=== PATIENT | female | born 1975 | race Caucasian/White ===

== ENCOUNTER 2016-05-11 15:55 | Emergency (ER) | payer OTHER ==
--- NOTE | 2016-05-11 17:19 | ED NURSING NOTES ---
Clinical Report - Nurses [facility] [address] [place] [address] 05/11/2016 15:54 Patient: KIN PHAN TRIAGE Acuity: LEVEL 3. Chief Complaint: MIGRAINE HEADACHE. Alert. No acute distress. SEPSIS SCREEN: Sepsis Screen. Negative (no infection suspected/documented). NALINI COMA SCORE: [place] Coma Scale: 15- eyes open spontaneously (4); best verbal response- oriented x 4 (5); best motor response- obeys commands (6). --16:05 Cherelle Ray R.N. 16:00 05/11/16. BP: 128/68. HR: 108. RR: 18. O2 saturation: 99% on room air. Temp: 98.5 F (oral). Pain level now: 01/13. --16:05 Cherelle aRy R.N. Weight: 117.9 kg stated. Height/Length: 64 inches Per Patient. BMI: 44.6. --16:02 Cherelle Ray R.N. Medications LamoTRIgine Oral. --16:02 Cherelle Ray R.N. Medication/allergy information source: the patient. --16:05 Cherelle Ray R.N. Allergies Erythromycin. Imitrex.(Anaphylaxis) --16:02 Cherelle Ray R.N. History Arrived by private vehicle. Historian: patient. Accompanied by spouse. Primary physician (Adan). This started 1 months ago. ( Pt reports she has had this headache for 1 month. Today it is worse.). PAST MEDICAL HX: Uses depo injections. SOCIAL HX: Never smoker. No alcohol use or drug use. FALL RISK ASSESSMENT: Fall risk assessment completed. No fall risk identified. NUTRITIONAL RISK ASSESSMENT: The nutritional risk assessment revealed no deficiencies. FUNCTIONAL ASSESSMENT: Functional assessment: no impairments noted. LEARNING NEEDS ASSESSMENT: The learning needs assessment revealed no barriers. SKIN INTEGRITY ASSESSMENT: Skin integrity risk assessment completed. No skin integrity risk identified. --16:05 Winterer, Cherelle, R.N. PROBLEMS: Headache. Otitis Externa. Diarrhea. Chronic Headache. Diabetes Mellitus. Migraine Headache. Personality disorder, manic depressant, PTSD. --16:02 Cherelle Ray R.N. ADDITIONAL SURGERIES: Carpal Tunnel Surgery. Cyst on rt hand . Dilatation & Curettage. Tonsillectomy. --16:02 Cherelle Ray R.N. Assessment GENERAL / NEURO / PSYCH: Alert. Oriented X 4. Appears in no acute distress. Patient appears calm and cooperative. RESPIRATORY: Respirations not labored. CVS: Capillary refill less than 2 seconds. GI / : Abdomen soft and nontender. SKIN: Mucous membranes are pink. Skin is warm and dry. --16:05 Cherelle Ray R.N. Interventions ID band on patient. To treatment room. --16:05 Cherelle Ray R.N. NURSING PROGRESS NOTES Reassurance given. Lights dimmed. Two patient identifiers checked. Call light placed in reach. Side rails up x 1. Bed placed in lowest position. Brakes of bed on. Patient ready for evaluation- chart flagged and TOUCH UP PAINTER HAND notified. --16:05 Cherelle Ray R.N. 16:35 05/11/2016 Toradol (Ketorolac Tromethamine) IM 60 mg given. Given in the left gluteus chay. Allergies verified and confirmed 5 rights. --16:35 Cherelle Ray R.N. 16:35 05/11/2016 Benadryl (DiphenhydrAMINE HCl) IM 50 mg given. Given in the right deltoid. Allergies verified, confirmed 5 rights and sedative warning given to the patient. --16:35 Cherelle Ray R.N. 16:35 05/11/2016 Reglan (Metoclopramide HCl) IM 10 mg given. Given in the left gluteus chay. Allergies verified and confirmed 5 rights. --16:35 Cherelle Ray R.N. 17:05 05/11/16. The patient is calm and resting quietly and has had no adverse reaction. Overall patient status is the same- she states feels the same. --17: Cherelle Ray R.N. DISPOSITION / DISCHARGE Departure time: 17:35 May 11 2016. Condition at departure: improved and stable. No learning barriers present. Discharge instructions provided and reviewed with the patient. Reviewed medication(s) side effects, precautions and dosing information. Prescription(s) given to the patient. Patient verbalized understanding. Written instructions provided in [place]. The patient was discharged by the nurse practitioner. She was discharged home and accompanied by spouse. She left the Emergency Department ambulatory and via private vehicle. Spouse driving. --18:49 Cherelle Ray R.N. 18:47 05/11/16. BP: 117/57. HR: 82. RR: 16. O2 saturation: 100%. Temp: 98.4 F (oral). Pain level now: 09/13. --18:49 Cherelle Ray R.N. Locked/Released at 05/11/2016 18:49 by Cherelle Ray R.N.
--- NOTE | 2016-05-11 17:19 | ED NURSING NOTES ---
Clinical Report - Nurses [facility] [address] [place] [address] 05/11/2016 15:54 Patient: KIN PHAN TRIAGE Acuity: LEVEL 3. Chief Complaint: MIGRAINE HEADACHE. Alert. No acute distress. SEPSIS SCREEN: Sepsis Screen. Negative (no infection suspected/documented). NALINI COMA SCORE: [place] Coma Scale: 15- eyes open spontaneously (4); best verbal response- oriented x 4 (5); best motor response- obeys commands (6). --16:05 Cherelle Ray R.N. 16:00 05/11/16. BP: 128/68. HR: 108. RR: 18. O2 saturation: 99% on room air. Temp: 98.5 F (oral). Pain level now: 01/13. --16:05 Cherelle Ray R.N. Weight: 117.9 kg stated. Height/Length: 64 inches Per Patient. BMI: 44.6. --16:02 Cherelle Ray R.N. Medications LamoTRIgine Oral. --16:02 Cherelle Ray R.N. Medication/allergy information source: the patient. --16:05 Cherelle Ray R.N. Allergies Erythromycin. Imitrex.(Anaphylaxis) --16:02 Cherelle Ray R.N. History Arrived by private vehicle. Historian: patient. Accompanied by spouse. Primary physician (Adan). This started 1 months ago. ( Pt reports she has had this headache for 1 month. Today it is worse.). PAST MEDICAL HX: Uses depo injections. SOCIAL HX: Never smoker. No alcohol use or drug use. FALL RISK ASSESSMENT: Fall risk assessment completed. No fall risk identified. NUTRITIONAL RISK ASSESSMENT: The nutritional risk assessment revealed no deficiencies. FUNCTIONAL ASSESSMENT: Functional assessment: no impairments noted. LEARNING NEEDS ASSESSMENT: The learning needs assessment revealed no barriers. SKIN INTEGRITY ASSESSMENT: Skin integrity risk assessment completed. No skin integrity risk identified. --16:05 Winterer, Cherelle, R.N. PROBLEMS: Headache. Otitis Externa. Diarrhea. Chronic Headache. Diabetes Mellitus. Migraine Headache. Personality disorder, manic depressant, PTSD. --16:02 Cherelle Ray R.N. ADDITIONAL SURGERIES: Carpal Tunnel Surgery. Cyst on rt hand . Dilatation & Curettage. Tonsillectomy. --16:02 Cherelle Ray R.N. Assessment GENERAL / NEURO / PSYCH: Alert. Oriented X 4. Appears in no acute distress. Patient appears calm and cooperative. RESPIRATORY: Respirations not labored. CVS: Capillary refill less than 2 seconds. GI / : Abdomen soft and nontender. SKIN: Mucous membranes are pink. Skin is warm and dry. --16:05 Cherelle Ray R.N. Interventions ID band on patient. To treatment room. --16:05 Cherelle Ray R.N. NURSING PROGRESS NOTES Reassurance given. Lights dimmed. Two patient identifiers checked. Call light placed in reach. Side rails up x 1. Bed placed in lowest position. Brakes of bed on. Patient ready for evaluation- chart flagged and NUCLEAR REACTOR ENGINEER notified. --16:05 Cherelle Ray R.N. 16:35 05/11/2016 Toradol (Ketorolac Tromethamine) IM 60 mg given. Given in the left gluteus chay. Allergies verified and confirmed 5 rights. --16:35 Cherelle Ray R.N. 16:35 05/11/2016 Benadryl (DiphenhydrAMINE HCl) IM 50 mg given. Given in the right deltoid. Allergies verified, confirmed 5 rights and sedative warning given to the patient. --16:35 Cherelle Ray R.N. 16:35 05/11/2016 Reglan (Metoclopramide HCl) IM 10 mg given. Given in the left gluteus chay. Allergies verified and confirmed 5 rights. --16:35 Cherelle Ray R.N. 17:05 05/11/16. The patient is calm and resting quietly and has had no adverse reaction. Overall patient status is the same- she states feels the same. --17: Cherelle Ray R.N. DISPOSITION / DISCHARGE Departure time: 17:35 May 11 2016. Condition at departure: improved and stable. No learning barriers present. Discharge instructions provided and reviewed with the patient. Reviewed medication(s) side effects, precautions and dosing information. Prescription(s) given to the patient. Patient verbalized understanding. Written instructions provided in [place]er. The patient was discharged by the nurse practitioner. She was discharged home and accompanied by spouse. She left the Emergency Department ambulatory and via private vehicle. Spouse driving. --18:49 Cherelle Ray R.N. 18:47 05/11/16. BP: 117/57. HR: 82. RR: 16. O2 saturation: 100%. Temp: 98.4 F (oral). Pain level now: 09/13. --18:49 Cherelle Ray R.N. Locked/Released at 05/11/2016 18:49 by Cherelle Ray R.N.
--- NOTE | 2016-05-11 17:19 | ED CLINICAL REPORT ---
Clinical Report - Physicians/Mid Levels [facility] [address] [place] [address] 05/11/2016 15:54 Patient: KIN PHAN Time Seen: 15:59; initial patient contact, initial documentation, patient care assumed. Arrived- By private vehicle. Historian- patient and spouse. HISTORY OF PRESENT ILLNESS Is still present. Chief Complaint: HEADACHE and MIGRAINE HEADACHE. This started about 1 months ago. It is described as similar to previous headaches, "pain", throbbing and diffuse. Located in the right hemicranial, right parietal, right temporal, frontal and left hemicranial region. Located in the left parietal and left temporal region and described as a global headache. No neck pain. Not located in the facial region. At its maximum, severity described as severe. When seen in the E.D., severity described as severe. Modifying factors: worsened by bright light and noise; relieved by nothing. The patient has had photophobia, nausea and vomiting. The vomiting has occurred only once. No preceding symptoms, numbness or weakness. No recent travel. Similar symptoms previously: Chronically. Recent medical care: The patient was seen recently in the office. ( went to neuro about a month ago, had mri and other tests done, all normal, saw dr about a week ago, steroids tried, still has lee). REVIEW OF SYSTEMS No fever, sinus pressure, ear pain, sore throat or head injury. No chest pain, difficulty breathing, cough or abdominal pain. All systems otherwise negative, except as recorded above. PAST HISTORY See nurses notes. PROBLEMS: Headache. Otitis Externa. Diarrhea. Chronic Headache. Diabetes Mellitus. Migraine Headache. Personality disorder, manic depressant, PTSD. --16:02 Cherelle Ray RTeodora. ADDITIONAL SURGERIES: Carpal Tunnel Surgery. Cyst on rt hand . Dilatation & Curettage. Tonsillectomy. --16:02 Cherelle Ray R.N. SOCIAL HISTORY Never smoker. No alcohol use or drug use. No recent travel. Is a local resident. FAMILY HISTORY Negative. ADDITIONAL NOTES The nursing notes have been reviewed with agreement regarding the chief complaint, HPI, ROS, PMH and patient medications and allergies. PHYSICAL EXAM Vital Signs: 05/11/2016 16:00 BP: 128/68. HR: 108. RR: 18. O2 saturation: 99%. Temp: 98.5 F. Pain level now: 01/13. Have been reviewed as normal and appear to be correct. Appearance: Alert. No acute distress. Eyes: Pupils equal, round and reactive to light. Eyes normal inspection. ENT: Ears normal. Nose normal. Pharynx normal. Neck: Normal inspection. Neck supple. CVS: Normal heart rate and rhythm. Heart sounds normal. Pulses normal. Respiratory: No respiratory distress. Breath sounds normal. Abdomen: Mildly obese. Back: Normal inspection. Skin: Skin warm and dry. Normal skin color. No rash. Normal skin turgor. Extremities: Extremities exhibit normal ROM. No lower extremity edema. Neuro: Oriented X 3. Alert. Mood/affect normal. Speech normal. Cranial nerves normal (as tested). No cerebellar findings. No motor deficit. No sensory deficit. PROGRESS AND PROCEDURES Course of Care: 16:08 05/11/16. pt has brief viry for ativan and some er visits, nothing alarming, see report for full details DANCE ARTIST Kushal assisting with pt eval and tx with my supervision. Patient counseled in person regarding the patient's stable condition and diagnosis. 17:18. Differential Diagnosis: I considered migraine, cluster headache, subarachnoid hemorrhage, intracranial bleed, vascular malformation, cerebral aneurysm, vascular dissection, vasculitis, temporal arteritis, brain abscess, subdural empyema, sinusitis, influenza, viral syndrome, carbon monoxide exposure, analgesic abuse, hypoglycemia and trigeminal neuralgia as a possible cause of headache in this patient. This is a partial list of diagnoses considered. Above considerations are based on history and physical exam. Differential diagnosis was discussed with patient. Disposition: Discharged home in good and improved condition (17:19). Condition: good and stable. CLINICAL IMPRESSION Episodic, poorly controlled migraine and periodic headache syndrome. INSTRUCTIONS Warnings: GENERAL WARNINGS: Return or contact your physician immediately if your condition worsens or changes unexpectedly, if not improving as expected, or if other problems arise. SPECIFICALLY, return if you develop fever, vomiting, numbness, weakness, difficulty thinking, visual disturbances, fainting or extreme fatigue. Prescription Medications: Zofran 4 mg: Take 1 orally every six hours as needed for nausea/vomiting. Dispense ten (10). No refills. Substitution is permissible. Fioricet: Take 1-2 orally every 4 hours as needed for headache. Dispense twenty (20). No refills. Substitution is permissible. Follow-up: Follow up with your doctor in about two days even if well. Call for an appointment. Summary of care provided to patient. Understanding of the discharge instructions verbalized by patient. (Electronically signed by Tram Guy A.R.N.PJuan 05/11/2016 17:57)
--- NOTE | 2016-05-11 17:19 | ED ORDER SUMMARY ---
..... Patient: KIN PHAN OrderSheet [facility] VisitID: [id number] [address] [place] [address] 40y, F Registration Date/Time: 05/11/2016 ORDER SHEET Weight: 117.9 kg (stated) Allergies: Erythromycin, Imitrex GENERAL ORDERS: MEDICATION ORDERS: Toradol IM 60 mg (NOW) (16:23 05/11/2016 HBivens A.R.N.P.) (Ack 16:24 MWinterer R.N.) (16:35 MWinterer R.N.) Benadryl IM 50 mg (NOW) (16:23 05/11/2016 HBivens A.R.N.P.) (Ack 16:24 MWinterer R.N.) (16:35 MWinterer R.N.) - (Reglan 10mg im stat) (16:23 05/11/2016 HBivens A.R.N.P.) (Ack 16:24 MWinterer R.N.) (16:35 MWinterer R.N.) IV FLUIDS: ORDER SHEET NOTES: [Electronically signed by Tram Guy A.R.N.PJuan (17:57 05/11/2016)] [Electronically signed by Cherelle Ray R.N. (18:49 05/11/2016)] [Electronically locked/signed by Cherelle Ray R.N. (18:49 05/11/2016)]
--- NOTE | 2016-05-11 17:19 | ED ORDER SUMMARY ---
..... Patient: KIN PHAN OrderSheet [facility] VisitID: [id number] [address] [place] [address] 40y, F Registration Date/Time: 05/11/2016 ORDER SHEET Weight: 117.9 kg (stated) Allergies: Erythromycin, Imitrex GENERAL ORDERS: MEDICATION ORDERS: Toradol IM 60 mg (NOW) (16:23 05/11/2016 HBivens A.R.N.P.) (Ack 16:24 MWinterer R.N.) (16:35 MWinterer R.N.) Benadryl IM 50 mg (NOW) (16:23 05/11/2016 HBivens A.R.N.P.) (Ack 16:24 MWinterer R.N.) (16:35 MWinterer R.N.) - (Reglan 10mg im stat) (16:23 05/11/2016 HBivens A.R.N.P.) (Ack 16:24 MWinterer R.N.) (16:35 MWinterer R.N.) IV FLUIDS: ORDER SHEET NOTES: [Electronically signed by Tram Guy A.R.N.PJuan (17:57 05/11/2016)] [Electronically signed by Cherelle Ray R.N. (18:49 05/11/2016)] [Electronically locked/signed by Cherelle Ray R.N. (18:49 05/11/2016)]
--- NOTE | 2016-05-11 18:49 | ED DISCHARGE INSTRUCTIONS ---
Patient: KIN PHAN General Instructions 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 INSTRUCTIONS Warnings: GENERAL WARNINGS: Return or contact your physician immediately if your condition worsens or changes unexpectedly, if not improving as expected, or if other problems arise. SPECIFICALLY, return if you develop fever, vomiting, numbness, weakness, difficulty thinking, visual disturbances, fainting or extreme fatigue. Prescription Medications: Zofran 4 mg: Take 1 orally every six hours as needed for nausea/vomiting. Dispense ten (10). No refills. Substitution is permissible. Fioricet: Take 1-2 orally every 4 hours as needed for headache. Dispense twenty (20). No refills. Substitution is permissible. Follow-up: Follow up with your doctor in about two days even if well. Call for an appointment. Summary of care provided to patient. Understanding of the discharge instructions verbalized by patient. ADDITIONAL INFORMATION Headache Cluster A cluster headache is different from migraine or tension headaches. A cluster headache starts suddenly without any warning sign. The pain can become severe within minutes. The headache is often brief, usually lasting only 15 minutes; but it can continue for several hours. The pain is centered around one eye. There may be tears coming from that eye. That eyelid may become droopy with redness and swelling around the eye. A stuffy or runny nose on the affected side is also common. There may be several headaches in one 24-hour period. These may return at the same time of day during the cluster period. A cluster headache ends as suddenly as it began. It often leaves you feeling exhausted for some time afterwards. Cluster headaches often occur in the nighttime, during certain times of the year that is unique to you. A cluster period ranges from a few weeks up to a few months. Then, they may not recur again for months or years. Possible triggers include alcohol and cigarette smoking. Even one drink can trigger a headache during the cluster period. Other potential triggers include interrupted sleep patterns. Certain medicines such as nitroglycerin can also cause a cluster headache. If your headaches are brief (15 minutes or less), chpt-xtd-shlxcwp medicines wont help,since it takes 20-30 minutes for these medicines to start working. Prescription medicines by injection or nasal spray can stop a headache (called abortive treatment). Preventive treatments (such as steroids, and anti-seizure medicines) can help reduce the number of headaches during a cluster period. Use of oxygen or a nerve stimulator may shorten each attack and reduce the severity. In some people with frequent and severe symptoms, surgery may be used to disrupt part of the local nerve conducting the pain signals.These preventive treatments are usually provided by specialists such as a neurologist or neurosurgeon. Home Care: If you were given pain medicine for this headache, do not drive yourself home. Arrange for a ride, instead. When you get home, try to sleep. You should feel much better when you wake up. If your doctor has prescribed preventive medicines, take them as directed. If abortive medicines were prescribed be sure to carry these with you to take at first sign of the headache. Stick to a regular sleep schedule. Avoid afternoon naps during a cluster period. If you have sleep apnea, talk to your doctor about treatment for this condition since this greatly interferes with sleep patterns. Limit exposure to fumes from gasoline, oil-based paints and the like. Avoid drinking alcohol and smoking during a cluster period. Be cautious when traveling to high altitudes. The reduced oxygen may trigger a headache. Use sunglasses to avoid glare and bright lights. Keep a headache journal. Record the date and time of each headache. Describe the quality of the pain (severity, location, how long it lasts), your response to any medicines to control the pain, possible triggers (something you ate or did just before the attack). Share this information with your doctor to help him design the best treatment plan for you. Talking to a counselor, therapist or support group may help you cope with the effects of cluster headache on your lifestyle. Follow Up with your doctor or as advised by our staff. [NOTE: If you had a CT scan or MRI, this will be reviewed by a specialist. You will be notified of any new findings that may affect your care.] Get Prompt Medical Attention if any of the following occur: Sudden, severe headache, worse than any you have had before Headache with a fainting spell Unexplained fever greater than 100.0 F (37.8 C) Stiff neck or rash Weakness of an arm or leg or one side of the face Difficulty with speech or vision Migraine Headache Migraine headaches are related to changes in blood flow to the brain. This causes throbbing or constant pain on one or both sides of the head. The pain may last from a few hours to several days. There is usually nausea, vomiting, sensitivity to light and sound, and blurred vision. A migraine attack may be triggered by emotional stress, hormone changes during the menstrual cycle, oral contraceptives, alcohol use, certain foods containing tyramine, eye strain, weather changes, missing meals, or too little or too much sleep. Home Care For This Headache: 1) If you were given pain medicine for this headache, do not drive yourself home . Arrange for a ride, instead. When you get home, try to sleep. You should feel much better when you wake up. 2) Migraine headaches may improve with an ice pack on the forehead or at the base of the skull. Heat to the back of your neck may relieve any neck spasm. 3) Drink only clear liquids or eat a very light diet to avoid nausea/vomiting until symptoms improve. Preventing Future Headaches: 1) Pay attention to those factors that seem to trigger your headache. Try to avoid them when you can. If you have frequent headaches, it is useful to keep a diary of what you were doing, feeling or eating in the hours before each attack. Show this to your doctor to help find the cause of your headaches. a) If you feel that stress is a factor in your headaches, look at the sources of stress in your life. Find ways to release the build-up of those stresses by using regular exercise, relaxation methods (yoga, meditation), bio-feedback or simply taking time-out for yourself. For more information about this, consult your doctor or go to a local bookstore and review books and tapes on this subject. b) Tyramine is a substance present in the following foods : chocolate, yogurt, all cheeses except cottage cheese and cream cheese. smoked or pickled fish and meat (including eledr, caviar, bologna, pepperoni, salami), liver, avocados, bananas, figs, raisins, and red wine. Be aware that these foods may trigger a migraine in some persons. Try taking these foods out of your diet for 1-2 months to see if this reduces headache frequency. Treating Future Attacks: 1) At the first sign of a headache, take time out if possible. Find a quiet, dark, comfortable place to sit or lie down. Let yourself relax or sleep. 2) An ice pack on the forehead or area of greatest pain may help. If you are having muscle spasm and tightness of the neck, a heating pad and massage to this area may be helpful. 3) If you have been prescribed a medicine to stop a migraine headache, use this at the very first warning sign of the headache (aura or initial pain) for best results. Follow Up with your doctor if the headache is not better within the next 24 hours. If you have frequent headaches you should discuss a treatment plan with your primary care doctor. Ask if you can have medicine to take at home the next time you get a bad headache. Poorly controlled chronic headaches may require a referral to a neurologist (headache specialist). Get Prompt Medical Attention if any of the following occur: Your head pain gets worse, or does not improve within 24 hours Repeated vomiting (cant keep liquids down) Sinus or ear or throat pain (not already reported) Fever of 100.4 F (38 C) or higher, or as directed by your healthcare provider Stiff neck Extreme drowsiness, confusion or fainting Dizziness, vertigo (dizziness with spinning sensation) Weakness of an arm or leg or one side of the face Difficulty with speech or vision Headache [Unspecified] The cause of your headache today is not clear, but it does not appear to be the sign of any serious illness. Under stress, some people tense the muscles of their shoulder, neck and scalp without knowing it. If this condition lasts long enough, a TENSION HEADACHE can occur. A MIGRAINE HEADACHE is caused by changes in blood flow to the brain. A migraine attack may be triggered by emotional stress, hormone changes during the menstrual cycle, oral contraceptives, alcohol use, certain foods containing tyramine, eye strain, weather changes, missing meals, lack of sleep or oversleeping. Other causes of headache include a viral illness with high fever, head injury with concussion, sinus, ear or throat infection, dental pain and TMJ (jaw joint) pain. More serious but less common causes of headache include stroke, brain hemorrhage, brain tumor, meningitis and encephalitis. Home Care: If you were given pain medicine for this headache, do not drive yourself home. Arrange for a ride, instead. When you get home, try to sleep. You should feel much better when you wake up. Apply heat to the back of your neck to relieve neck muscle spasm. Migraine headaches may respond best to an ice pack on the forehead or at the base of the skull. If you are having nausea or vomiting, follow a light diet until your headache is relieved. If you have a migraine type headache, use sunglasses when in the daylight or around bright indoor lighting until symptoms improve. Bright glaring light can worsen this kind of headache. Follow Up with your doctor if the headache is not better within the next 24 hours. If you have frequent headaches you should discuss a treatment plan with your primary care doctor. By being aware of the earliest signs of headache, and starting treatment right away, you may be able to stop the pain yourself. Get Prompt Medical Attention if any of the following occur: Worsening of your head pain or no improvement within 24 hours Repeated vomiting (unable to keep liquids down) Fever of 100.4F (38C) or higher, or as directed by your healthcare provider Stiff neck Extreme drowsiness, confusion or fainting Dizziness, vertigo (dizziness with spinning sensation) Weakness of an arm or leg or one side of the face Difficulty with speech or vision Ondansetron Oral disintegrating tablet What is this medicine? ONDANSETRON (on BETTY se lico) is used to treat nausea and vomiting caused by chemotherapy. It is also used to prevent or treat nausea and vomiting after surgery. How should I use this medicine? These tablets are made to dissolve in the mouth. Do not try to push the tablet through the foil backing. With dry hands, peel away the foil backing and gently remove the tablet. Place the tablet in the mouth and allow it to dissolve, then swallow. While you may take these tablets with water, it is not necessary to do so. Talk to your survey data technician regarding the use of this medicine in children. Special care may be needed. What side effects may I notice from receiving this medicine? Side effects that you should report to your doctor or health client care coordinator as soon as possible: allergic reactions like skin rash, itching or hives, swelling of the face, lips, or tongue breathing problems dizziness fast or irregular heartbeat feeling faint or lightheaded, falls fever and chills swelling of the hands and feet tightness in the chest Side effects that usually do not require medical attention (report to your doctor or health client care coordinator if they continue or are bothersome): constipation or diarrhea headache What may interact with this medicine? Do not take this medicine with any of the following medications: -apomorphine -cisapride -dofetilide -dronedarone -pimozide -thioridazine -ziprasidone This medicine may also interact with the following medications: -carbamazepine -phenytoin -rifampicin -tramadol -other medicines that prolong the QT interval (cause an abnormal heart rhythm) What if I miss a dose? If you miss a dose, take it as soon as you can. If it is almost time for your next dose, take only that dose. Do not take double or extra doses. Where should I keep my medicine? Keep out of the reach of children. Store between 2 and 30 degrees C (36 and 86 degrees F). Throw away any unused medicine after the expiration date. What should I tell my health care provider before I take this medicine? They need to know if you have any of these conditions: heart disease history of irregular heartbeat liver disease low levels of magnesium or potassium in the blood an unusual or allergic reaction to ondansetron, granisetron, other medicines, foods, dyes, or preservatives or trying to get breast-feeding What should I watch for while using this medicine? Check with your doctor or health client care coordinator as soon as you can if you have any sign of an allergic reaction. Butalbital, Acetaminophen, Caffeine Oral tablet What is this medicine? ACETAMINOPHEN; BUTALBITAL; CAFFEINE (a set a AVRIL keila fen; byoo KARL bi karl; KAF een) is a pain reliever. It is used to treat tension headaches. How should I use this medicine? Take this medicine by mouth with a full glass of water. Follow the directions on the prescription label. If the medicine upsets your stomach, take the medicine with food or milk. Do not take more than you are told to take. Talk to your survey data technician regarding the use of this medicine in children. Special care may be needed. What side effects may I notice from receiving this medicine? Side effects that you should report to your doctor or health client care coordinator as soon as possible: allergic reactions like skin rash, itching or hives, swelling of the face, lips, or tongue breathing problems confusion feeling faint or lightheaded, falls redness, blistering, peeling or loosening of the skin, including inside the mouth seizure stomach pain yellowing of the eyes or skin Side effects that usually do not require medical attention (report to your doctor or health client care coordinator if they continue or are bothersome): constipation nausea, vomiting What may interact with this medicine? alcohol or medicines that contain alcohol antidepressants, especially MAOIs like isocarboxazid, phenelzine, tranylcypromine, and selegiline antihistamines benzodiazepines carbamazepine isoniazid medicines for pain like pentazocine, buprenorphine, butorphanol, nalbuphine, tramadol, and propoxyphene muscle relaxants naltrexone phenobarbital, phenytoin, and fosphenytoin phenothiazines like perphenazine, thioridazine, chlorpromazine, mesoridazine, fluphenazine, prochlorperazine, promazine, and trifluoperazine voriconazole What if I miss a dose? If you miss a dose, take it as soon as you can. If it is almost time for your next dose, take only that dose. Do not take double or extra doses. Where should I keep my medicine? Keep out of the reach of children. This medicine can be abused. Keep your medicine in a safe place to protect it from theft. Do not share this medicine with anyone. Selling or giving away this medicine is dangerous and against the law. Store at room temperature between 15 and 30 degrees C (59 and 86 degrees F). Keep container tightly closed. Protect from light. Throw away any unused medicine after the expiration date. What should I tell my health care provider before I take this medicine? They need to know if you have any of these conditions: drink more than 3 alcohol-containing drinks per day drug abuse or addiction heart or circulation problems kidney disease or problems going to the bathroom liver disease lung disease, asthma, or breathing problems porphyria an unusual or allergic reaction to acetaminophen, butalbital or other barbiturates, caffeine, other medicines, foods, dyes, or preservatives or trying to get breast-feeding What should I watch for while using this medicine? Tell your doctor or health client care coordinator if your pain does not go away, if it gets worse, or if you have new or a different type of pain. You may develop tolerance to the medicine. Tolerance means that you will need a higher dose of the medicine for pain relief. Tolerance is normal and is expected if you take the medicine for a long time. Do not suddenly stop taking your medicine because you may develop a severe reaction. Your body becomes used to the medicine. This does NOT mean you are addicted. Addiction is a behavior related to getting and using a drug for a non-medical reason. If you have pain, you have a medical reason to take pain medicine. Your doctor will tell you how much medicine to take. If your doctor wants you to stop the medicine, the dose will be slowly lowered over time to avoid any side effects. You may get drowsy or dizzy when you first start taking the medicine or change doses. Do not drive, use machinery, or do anything that may be dangerous until you know how the medicine affects you. Stand or sit up slowly. Do not take other medicines that contain acetaminophen with this medicine. Always read labels carefully. If you have questions, ask your doctor or pharmacist. If you take too much acetaminophen get medical help right away. Too much acetaminophen can be very dangerous and cause liver damage. Even if you do not have symptoms, it is important to get help right away. You have been given the following additional information: Headache, Cluster Headache, Migraine (Classical) Headache, Unspecified Ondansetron Oral disintegrating tablet Butalbital, Acetaminophen, Caffeine Oral tablet (Electronically signed by Tram Guy A.R.N.P. 05/11/2016 17:57)
--- NOTE | 2016-05-11 18:50 | ED MED RECONCILIATION SUMMARY ---
Patient: KIN PHAN Medication Reconciliation Report [facility] VisitID: [id number] [address] [place] [address] 40y, F Registration Date/Time: 05/11/2016 Weight: 117.9 kg Height/Length: 64 in. BMI: 44.6 ALLERGIES: Erythromycin, Imitrex The patient's Home Medications are listed below: THE FOLLOWING MEDICATIONS NEED TO BE RECONCILED: LamoTRIgine Oral The source(s) of the original Home Medication information: patient The following Medications were given to the patient in the Emergency Department: Toradol [IM] IM 60 mg, administered: 05/11/2016 4:35:00 PM Benadryl [IM] IM 50 mg, administered: 05/11/2016 4:35:00 PM Reglan [IM] IM 10 mg, administered: 05/11/2016 4:35:00 PM The following Medications were prescribed to the patient: Zofran 4 mg: Take 1 orally every six hours as needed for nausea/vomiting. Dispense ten (10). No refills. Substitution is permissible. -- Tram Guy, Alexis.R.N.P. Fioricet: Take 1-2 orally every 4 hours as needed for headache. Dispense twenty (20). No refills. Substitution is permissible. -- Tram Guy A.R.N.P.
--- NOTE | 2016-05-11 18:50 | ED MAR SUMMARY ---
..... Medication Administration Record [facility] [address] [place] [address] Patient: KIN PHAN Visit ID: [id number] 40y, F Weight: 117.9 kg Height/Length: 64 in BMI: 44.6 ALLERGIES: Erythromycin, Imitrex Given 16:05/11/2016 Cherelle Ray, R.N. Medication Administered: TORADOL [IM] (KETOROLAC TROMETHAMINE), Dose: 60 mg IM. Medication Ordered: Toradol IM 60 mg (NOW). Given 16:35 05/11/2016 Cherelle Ray, R.N. Medication Administered: BENADRYL [IM] (DIPHENHYDRAMINE HCL), Dose: 50 mg IM. Medication Ordered: Benadryl IM 50 mg (NOW). Given 16:05/11/2016 Cherelle Ray, R.N. Medication Administered: REGLAN [IM] (METOCLOPRAMIDE HCL), Dose: 10 mg IM. Medication Ordered: - (Reglan 10mg im stat).
--- NOTE | 2016-05-11 18:50 | ED MED RECONCILIATION SUMMARY ---
Patient: KIN PHAN Medication Reconciliation Report [facility] VisitID: [id number] [address] [place] [address] 40y, F Registration Date/Time: 05/11/2016 Weight: 117.9 kg Height/Length: 64 in. BMI: 44.6 ALLERGIES: Erythromycin, Imitrex The patient's Home Medications are listed below: THE FOLLOWING MEDICATIONS NEED TO BE RECONCILED: LamoTRIgine Oral The source(s) of the original Home Medication information: patient The following Medications were given to the patient in the Emergency Department: Toradol [IM] IM 60 mg, administered: 05/11/2016 4:35:00 PM Benadryl [IM] IM 50 mg, administered: 05/11/2016 4:35:00 PM Reglan [IM] IM 10 mg, administered: 05/11/2016 4:35:00 PM The following Medications were prescribed to the patient: Zofran 4 mg: Take 1 orally every six hours as needed for nausea/vomiting. Dispense ten (10). No refills. Substitution is permissible. -- Tram Guy, Alexis.R.N.P. Fioricet: Take 1-2 orally every 4 hours as needed for headache. Dispense twenty (20). No refills. Substitution is permissible. -- Tram Guy A.R.N.P.
--- NOTE | 2016-05-11 18:50 | ED MAR SUMMARY ---
..... Medication Administration Record [facility] [address] [place] [address] Patient: KIN PHAN Visit ID: [id number] 40y, F Weight: 117.9 kg Height/Length: 64 in BMI: 44.6 ALLERGIES: Erythromycin, Imitrex Given 16:05/11/2016 Cherelle Ray, R.N. Medication Administered: TORADOL [IM] (KETOROLAC TROMETHAMINE), Dose: 60 mg IM. Medication Ordered: Toradol IM 60 mg (NOW). Given 16:35 05/11/2016 Cherelle Ray, R.N. Medication Administered: BENADRYL [IM] (DIPHENHYDRAMINE HCL), Dose: 50 mg IM. Medication Ordered: Benadryl IM 50 mg (NOW). Given 16:05/11/2016 Cherelle Ray, R.N. Medication Administered: REGLAN [IM] (METOCLOPRAMIDE HCL), Dose: 10 mg IM. Medication Ordered: - (Reglan 10mg im stat).
== END 2016-05-11 17:35 | disposition home or self-care (01) ==
LOC: ED SRH 15:55
DX: G43.909 Migraine, unspecified, not intractable, without status migrainosus (principal); G43.C0 Periodic headache syndromes in child or adult, not intractable; E11.9 Type 2 diabetes mellitus without complications; Z88.1 Allergy status to other antibiotic agents; Z88.8 Allergy status to other drugs, medicaments and biological substances

== ENCOUNTER 2016-09-22 11:55 | Emergency (ER) | payer OTHER ==
--- NOTE | 2016-09-22 13:43 | ED CLINICAL REPORT ---
Clinical Report - Physicians/Mid Levels Formerly [facility] [address] [place] [address] 09/22/2016 11:55 Patient: KIN PHAN Time Seen: 12:23; initial patient contact. Arrived- By private vehicle. Historian- patient. HISTORY OF PRESENT ILLNESS Is still present. Chief Complaint: HEADACHE. This started today. Onset during light activity. It is described as similar to previous headaches and "pain". No neck pain. Not located in the facial region. Located in the occipital region. At its maximum, severity described as moderate. When seen in the E.D., severity described as moderate. Modifying factors: worsened by bright light, noise and moving head; relieved by nothing. The patient has had blurred vision, photophobia and nausea. No preceding symptoms, numbness, weakness or vomiting. Similar symptoms previously: Many times. Recent medical care: Not recently seen/assessed. REVIEW OF SYSTEMS No fever or sinus pressure. All systems otherwise negative, except as recorded above. PAST HISTORY Sick Contact. Headache. Otitis Externa. Diarrhea. Chronic Headache. Diabetes Mellitus. . Migraine Headache. Personality disorder, manic depressant, PTSD. SURGERIES: Carpal Tunnel Surgery. Cyst on rt hand . Dilatation & Curettage. Tonsillectomy. -. SOCIAL HISTORY Never smoker. No alcohol use or drug use. ADDITIONAL NOTES The nursing notes have been reviewed. PHYSICAL EXAM Vital Signs: 09/22/2016 12:08 BP: 104/61. HR: 98. RR: 16. O2 saturation: 99%. Temp: 98.8 F. Have been reviewed as normal. Appearance: Alert. Appears to be in pain. Eyes: Pupils equal, round and reactive to light. Eyes normal inspection. No conjunctival findings. ENT: Pharynx normal. Neck: Normal inspection. CVS: Normal heart rate and rhythm. Heart sounds normal. Respiratory: No respiratory distress. Breath sounds normal. Neuro: Oriented X 3. Alert. Mood/affect normal. Speech normal. Cranial nerves normal (as tested). No cerebellar findings. No motor deficit. PROGRESS AND PROCEDURES Course of Care: Pt given Toradol 30, Decadron 10, Benadryl 25, and Reglan 10 mg w/ significant relief. Disposition: Discharged home in good and improved condition. Condition: good. CLINICAL IMPRESSION Acute migraine headache without aura- poorly controlled. No status migrainosus, hemiplegia, ophthalmoplegia, persistent aura or cerebral infarction. Not relationship to menses. INSTRUCTIONS Do not work today. Your Current Medications: CONTINUE TAKING THE FOLLOWING MEDICATIONS: Amitriptyline HCl Oral : Tablet 50 mg, 1 tablet at bedtime. Topamax Oral : Tablet 50 mg, 1 tablet at bedtime. Prescription Medications: Reglan 10 mg tablets: take 1 orally every 6 hours as needed for nausea or vomiting. Dispense thirty (30). No refills. Substitution is permissible. Follow-up: Follow up with your doctor in about two days. Call for an appointment. Screening today revealed the patient's blood pressure to be in the normal range. (Electronically signed by José Miguel Colvin Dr. 09/22/2016 22:20)
--- NOTE | 2016-09-22 13:43 | ED CLINICAL REPORT ---
Clinical Report - Physicians/Mid Levels [facility] [address] [place] [address] 09/22/2016 11:55 Patient: KIN PHAN Time Seen: 12:23; initial patient contact. Arrived- By private vehicle. Historian- patient. HISTORY OF PRESENT ILLNESS Is still present. Chief Complaint: HEADACHE. This started today. Onset during light activity. It is described as similar to previous headaches and "pain". No neck pain. Not located in the facial region. Located in the occipital region. At its maximum, severity described as moderate. When seen in the E.D., severity described as moderate. Modifying factors: worsened by bright light, noise and moving head; relieved by nothing. The patient has had blurred vision, photophobia and nausea. No preceding symptoms, numbness, weakness or vomiting. Similar symptoms previously: Many times. Recent medical care: Not recently seen/assessed. REVIEW OF SYSTEMS No fever or sinus pressure. All systems otherwise negative, except as recorded above. PAST HISTORY Sick Contact. Headache. Otitis Externa. Diarrhea. Chronic Headache. Diabetes Mellitus. . Migraine Headache. Personality disorder, manic depressant, PTSD. SURGERIES: Carpal Tunnel Surgery. Cyst on rt hand . Dilatation & Curettage. Tonsillectomy. -. SOCIAL HISTORY Never smoker. No alcohol use or drug use. ADDITIONAL NOTES The nursing notes have been reviewed. PHYSICAL EXAM Vital Signs: 09/22/2016 12:08 BP: 104/61. HR: 98. RR: 16. O2 saturation: 99%. Temp: 98.8 F. Have been reviewed as normal. Appearance: Alert. Appears to be in pain. Eyes: Pupils equal, round and reactive to light. Eyes normal inspection. No conjunctival findings. ENT: Pharynx normal. Neck: Normal inspection. CVS: Normal heart rate and rhythm. Heart sounds normal. Respiratory: No respiratory distress. Breath sounds normal. Neuro: Oriented X 3. Alert. Mood/affect normal. Speech normal. Cranial nerves normal (as tested). No cerebellar findings. No motor deficit. PROGRESS AND PROCEDURES Course of Care: Pt given Toradol 30, Decadron 10, Benadryl 25, and Reglan 10 mg w/ significant relief. Disposition: Discharged home in good and improved condition. Condition: good. CLINICAL IMPRESSION Acute migraine headache without aura- poorly controlled. No status migrainosus, hemiplegia, ophthalmoplegia, persistent aura or cerebral infarction. Not relationship to menses. INSTRUCTIONS Do not work today. Your Current Medications: CONTINUE TAKING THE FOLLOWING MEDICATIONS: Amitriptyline HCl Oral : Tablet 50 mg, 1 tablet at bedtime. Topamax Oral : Tablet 50 mg, 1 tablet at bedtime. Prescription Medications: Reglan 10 mg tablets: take 1 orally every 6 hours as needed for nausea or vomiting. Dispense thirty (30). No refills. Substitution is permissible. Follow-up: Follow up with your doctor in about two days. Call for an appointment. Screening today revealed the patient's blood pressure to be in the normal range. (Electronically signed by José Miguel Colvin Dr. 09/22/2016 22:20)
--- NOTE | 2016-09-22 13:43 | ED ORDER SUMMARY ---
..... Patient: KIN PHAN OrderSheet [facility] VisitID: [id number] [address] [place] [address] 41y, F Registration Date/Time: 09/22/2016 ORDER SHEET Weight: 122.0 kg (stated) Allergies: Erythromycin, Imitrex GENERAL ORDERS: Urine Urgent (12:38 09/22/2016 Paul Glez) (Ack 12:42 LNations ER Tech1) (12:42 LNations ER Tech1) MEDICATION ORDERS: IV FLUIDS: IV NS : initial bolus none -, then 1000 mL/hr for X1 (NOW) (12:44 09/22/2016 Paul Glez) (13:07 Lisa R.N.) Reglan IV 10 mg (NOW) (12:44 09/22/2016 Paul Glez) (13:07 Lisa R.N.) Decadron IV 10 mg (NOW) (12:44 09/22/2016 Paul Glez) (13:08 SAMIRAnearnol R.N.) Toradol IV 30 mg (NOW) (12:45 09/22/2016 Paul Glez) (13:08 Lisa R.N.) Benadryl IV 25 mg (NOW) (12:45 09/22/2016 Paul Glez) (13:08 SAMIRAnearnol R.N.) ORDER SHEET NOTES: [Electronically signed by Lisbeth Victor R.N. (14:13 09/22/2016)] [Electronically signed by José Miguel Colvin Dr. (22:20 09/22/2016)] [Electronically locked/signed by Lisbeth Victor R.N. (14:13 09/22/2016)]
--- NOTE | 2016-09-22 13:43 | ED NURSING NOTES ---
Clinical Report - Nurses [facility] [address] [place] [address] 09/22/2016 11:55 Patient: KIN PHAN TRIAGE Triage time 12:00 Sep 22 2016. Acuity: LEVEL 3. Chief Complaint: MIGRAINE HEADACHE. Alert. No acute distress. --12:13 Lisbeth Victor R.N. 12:08 09/22/16. BP: 104/61. HR: 98. RR: 16. O2 saturation: 99%. Temp: 98.8 F. --12:13 Lisbeth Victor R.N. 14:08 09/22/16. Pain level now: 01/13. --14:13 Lisbeth Victor R.N. Weight: 122 kg stated. Height/Length: 64 inches Per Patient. BMI: 46.2. --12:13 Lisbeth Victor R.N. Medications Topamax Oral (Tablet 50 mg) 1 tablet, at bedtime. --12:10 Lisbeth Victor R.N. Amitriptyline HCl Oral (Tablet 50 mg) 1 tablet, at bedtime. --12:10 Lisbeth Victor R.N. Medication/allergy information source: the patient. --12:13 Lisbeth Victor R.N. Allergies Erythromycin. --12:10 Lisbeth Victor R.N. Imitrex. --12:11 Lisbeth Victor R.N. History Arrived by private vehicle. Historian: patient. Accompanied by family and spouse. This started last night. She has had nausea. No vomiting. Treatment [employer]: Took ibuprofen. Recently seen in a clinic. (muscle relaxer). PAST MEDICAL HX: Immunizations: up-to-date. Last normal menstrual period- last depo shot was in April. Uses depo injections. Denies current . SOCIAL HX: Never smoker. No alcohol use or drug use. No recent travel. No infectious disease exposure. No known contact with a sick individual. SELF HARM ASSESSMENT: A self harm assessment was performed. The patient answered "no" to the question "Do you have thoughts of harming or killing yourself?". FALL RISK ASSESSMENT: Fall risk assessment completed. No fall risk identified. NUTRITIONAL RISK ASSESSMENT: The nutritional risk assessment revealed no deficiencies. FUNCTIONAL ASSESSMENT: Functional assessment: no impairments noted. LEARNING NEEDS ASSESSMENT: The learning needs assessment revealed no barriers. ABUSE ASSESSMENT: Abuse assessment: The patient was asked "Do you feel safe in your home?". SKIN INTEGRITY ASSESSMENT: Skin integrity risk assessment completed. No skin integrity risk identified. --12:13 Lisbeth Victor R.N. PROBLEMS: Sick Contact. Headache. Otitis Externa. Diarrhea. Chronic Headache. Diabetes Mellitus. . Migraine Headache. Personality disorder, manic depressant, PTSD. --12:11 Lisbeth Victor R.N. ADDITIONAL SURGERIES: Carpal Tunnel Surgery. Cyst on rt hand . Dilatation & Curettage. Tonsillectomy. --12:11 Lisbeth Victor R.N. Interventions ID band on patient. To room. --12:13 Lisbeth Victor R.N. PHYSICAL ASSESSMENT Ambulatory to room. GENERAL / NEURO / PSYCH: Alert. Oriented X 4. Appears in pain. Speech within normal limits. HEENT: No facial asymmetry noted. RESPIRATORY: Respirations not labored. CVS: Capillary refill less than 2 seconds. GI / : Abdomen soft and nontender. SKIN: Skin is warm and dry. --12:14 Lisbeth Victor R.N. NURSING PROGRESS NOTES Head of bed elevated. Patient identifiers checked. Call light placed in reach. Side rails up x 1. Bed placed in lowest position. Brakes of bed on. --12:14 Lisbeth Victor R.N. Patient gowned. --12:14 Lisbeth Victor R.N. 12:54 09/22/2016 Site #1 started via IV in the right hand with an 20g angiocath, with aseptic technique and good blood return; one attempt. Blood drawn: rainbow set. Labeled in the presence of the patient and sent to the lab. --12:54 Lisbeth Victor R.N. 12:56 09/22/2016 Started bag #1 1000 mL IV Fluids IV NS (Saline); bolus of 1000 mL over 1 hour(s) via site #1. Allergies verified and confirmed 5 rights. IV patency established. IV site checked: no pain, redness, or swelling. IV flushed thoroughly pre- and post-medication administration. --13:07 Lisbeth Victor R.N. 12:59 09/22/2016 Reglan (Metoclopramide HCl) IVP 10 mg given over 2 minute(s) via site #1. Allergies verified and confirmed 5 rights. IV patency established. IV site checked: no pain, redness, or swelling. IV flushed thoroughly pre- and post-medication administration. IVP given by RN. --13:07 Lisbeth Victor R.N. 13:02 09/22/2016 Decadron IVP 10 mg given over 2 minute(s) via site #1. Allergies verified and confirmed 5 rights. IV patency established. IV site checked: no pain, redness, or swelling. IV flushed thoroughly pre- and post-medication administration. IVP given by RN. --13:08 Lisbeth Victor R.N. 13:05 09/22/2016 Toradol IVP 30 mg given over 2 minute(s) via site #1. Allergies verified and confirmed 5 rights. IV patency established. IV site checked: no pain, redness, or swelling. IV flushed thoroughly pre- and post-medication administration. IVP given by RN. --13:08 Lisbeth Victor R.N. 13:07 09/22/2016 Benadryl (DiphenhydrAMINE HCl) IVP 25 mg given over 2 minute(s) via site #1. Allergies verified, confirmed 5 rights and sedative warning given to the patient. IV patency established. IV site checked: no pain, redness, or swelling. IV flushed thoroughly pre- and post-medication administration. IVP given by RN. --13:08 Lisbeth Victor R.N. 13:28 09/22/16. BP: 119/75. HR: 91. RR: 16. O2 saturation: 99%. Pain level now: 5/10. --13:32 Lisbeth Victor R.N. Reassessment after medication administered. She is calm and resting quietly. Overall patient status is improved- she states feels better. GENERAL / NEURO / PSYCH: The patient reports headache is still present but improving. Alert. Oriented X 4. RESPIRATORY: No respiratory distress. SKIN: Skin is warm and dry. Skin color within normal limits. --13:32 Lisbeth Victor R.N. 14:00 09/22/2016 IV Fluids IV NS Discontinued: bag #1 completed upon discharge. Total amount infused: 1000 mL. IV patency established. IV site checked: no pain, redness, or swelling. IV flushed thoroughly. --14:12 Lisbeth Victor R.N. DISPOSITION / DISCHARGE 14:09/22/2016 Site #1 removed upon discharge. Bandage applied. --14:01 Lisbeth Victor R.N. Departure time: 14:Sep 22 2016. Condition at departure: improved. No learning barriers present. Discharge instructions provided and reviewed with the patient. Reviewed medication(s) side effects, precautions, dosing and course information. Prescription(s) given to the patient. Reviewed referral to a primary care physician for followup. Patient verbalized understanding. Written instructions provided in Polish. The patient was discharged home and accompanied by spouse. She left the Emergency Department ambulatory and via private vehicle. Spouse driving. FALL RISK ASSESSMENT: Fall risk assessment completed. No fall risk identified. --14:02 Lisbeth Victor R.N. 14:00 09/22/16. BP: 117/73. HR: 83. RR: 16. O2 saturation: 99%. Pain level now: 07/14. --14:02 Lisbeth Victor R.N. Locked/Released at 09/22/2016 14:13 by Lisbeth Victor R.N.
--- NOTE | 2016-09-22 13:43 | ED ORDER SUMMARY ---
..... Patient: KIN PHAN OrderSheet [facility] VisitID: [id number] [address] [place] [address] 41y, F Registration Date/Time: 09/22/2016 ORDER SHEET Weight: 122.0 kg (stated) Allergies: Erythromycin, Imitrex GENERAL ORDERS: Urine Urgent (12:38 09/22/2016 Paul Glez) (Ack 12:42 LNations ER Tech1) (12:42 LNations ER Tech1) MEDICATION ORDERS: IV FLUIDS: IV NS : initial bolus none -, then 1000 mL/hr for X1 (NOW) (12:44 09/22/2016 Paul Glez) (13:07 Lisa R.N.) Reglan IV 10 mg (NOW) (12:44 09/22/2016 Paul Glez) (13:07 Lisa R.N.) Decadron IV 10 mg (NOW) (12:44 09/22/2016 Paul Glez) (13:08 SAMIRAnearnol R.N.) Toradol IV 30 mg (NOW) (12:45 09/22/2016 Paul Glez) (13:08 Lisa R.N.) Benadryl IV 25 mg (NOW) (12:45 09/22/2016 Paul Glez) (13:08 SAMIRAnearnol R.N.) ORDER SHEET NOTES: [Electronically signed by Lisbeth Victor R.N. (14:13 09/22/2016)] [Electronically signed by José Miguel Colvin Dr. (22:20 09/22/2016)] [Electronically locked/signed by Lisbeth Victor R.N. (14:13 09/22/2016)]
--- NOTE | 2016-09-22 22:20 | ED MAR SUMMARY ---
..... Medication Administration Record [facility] [address] [place] [address] Patient: KIN PHAN Visit ID: [id number] 41y, F Weight: 122.0 kg Height/Length: 64 in BMI: 46.2 ALLERGIES: Imitrex, Erythromycin Start 12:56 09/22/2016 Lisbeth Victor R.N., Stop 14:00 09/22/2016 Lisbeth Victor R.N. Medication Administered: IV NS (SALINE), Dose: IV Fluids, Bolus: 1000 mL over 1 hour(s), Dispensed: 1000 mL bag, Site: #1 right hand. Medication Ordered: IV NS : initial bolus none -, then 1000 mL/hr for X1 (NOW). Given 12:59 09/22/2016 Lisbeth Victor R.N. Medication Administered: REGLAN [IVP] (METOCLOPRAMIDE HCL), Dose: 10 mg IVP over 2 minute(s), Site: #1 right hand. Medication Ordered: Reglan IV 10 mg (NOW). Given 13:02 09/22/2016 Lisbeth Victor R.N. Medication Administered: DECADRON [IVP], Dose: 10 mg IVP over 2 minute(s), Site: #1 right hand. Medication Ordered: Decadron IV 10 mg (NOW). Given 13:05 09/22/2016 Lisbeth Victor R.N. Medication Administered: TORADOL [IVP], Dose: 30 mg IVP over 2 minute(s), Site: #1 right hand. Medication Ordered: Toradol IV 30 mg (NOW). Given 13:07 09/22/2016 Lisbeth Victor R.N. Medication Administered: BENADRYL [IVP] (DIPHENHYDRAMINE HCL), Dose: 25 mg IVP over 2 minute(s), Site: #1 right hand. Medication Ordered: Benadryl IV 25 mg (NOW).
--- NOTE | 2016-09-22 22:20 | ED MED RECONCILIATION SUMMARY ---
Patient: KIN PHAN Medication Reconciliation Report [facility] VisitID: [id number] [address] [place] [address] 41y, F Registration Date/Time: 09/22/2016 Weight: 122.0 kg Height/Length: 64 in. BMI: 46.2 ALLERGIES: Erythromycin, Imitrex The patient's Home Medications are listed below: CONTINUE TAKING THE FOLLOWING MEDICATIONS: Amitriptyline HCl Oral (50 mg) 1 tablet, at bedtime Topamax Oral (50 mg) 1 tablet, at bedtime The source(s) of the original Home Medication information: patient The following Medications were given to the patient in the Emergency Department: IV NS IV Fluids bolus 1000 mL over 1 hour(s), administered: 09/22/2016 12:56:00 PM Reglan [IVP] IVP 10 mg, administered: 09/22/2016 12:59:00 PM Decadron [IVP] IVP 10 mg, administered: 09/22/2016 1:02:00 PM Toradol [IVP] IVP 30 mg, administered: 09/22/2016 1:05:00 PM Benadryl [IVP] IVP 25 mg, administered: 09/22/2016 1:07:00 PM The following Medications were prescribed to the patient: Reglan 10 mg tablets: take 1 orally every 6 hours as needed for nausea or vomiting. Dispense thirty (30). No refills. Substitution is permissible. -- José Miguel Colvin Dr.
--- NOTE | 2016-09-22 22:20 | ED MED RECONCILIATION SUMMARY ---
Patient: KIN PHAN Medication Reconciliation Report [facility] VisitID: [id number] [address] [place] [address] 41y, F Registration Date/Time: 09/22/2016 Weight: 122.0 kg Height/Length: 64 in. BMI: 46.2 ALLERGIES: Erythromycin, Imitrex The patient's Home Medications are listed below: CONTINUE TAKING THE FOLLOWING MEDICATIONS: Amitriptyline HCl Oral (50 mg) 1 tablet, at bedtime Topamax Oral (50 mg) 1 tablet, at bedtime The source(s) of the original Home Medication information: patient The following Medications were given to the patient in the Emergency Department: IV NS IV Fluids bolus 1000 mL over 1 hour(s), administered: 09/22/2016 12:56:00 PM Reglan [IVP] IVP 10 mg, administered: 09/22/2016 12:59:00 PM Decadron [IVP] IVP 10 mg, administered: 09/22/2016 1:02:00 PM Toradol [IVP] IVP 30 mg, administered: 09/22/2016 1:05:00 PM Benadryl [IVP] IVP 25 mg, administered: 09/22/2016 1:07:00 PM The following Medications were prescribed to the patient: Reglan 10 mg tablets: take 1 orally every 6 hours as needed for nausea or vomiting. Dispense thirty (30). No refills. Substitution is permissible. -- José Miguel Colvin Dr.
--- NOTE | 2016-09-22 22:20 | ED MAR SUMMARY ---
..... Medication Administration Record [facility] [address] [place] [address] Patient: KIN PHAN Visit ID: [id number] 41y, F Weight: 122.0 kg Height/Length: 64 in BMI: 46.2 ALLERGIES: Imitrex, Erythromycin Start 12:56 09/22/2016 Lisbeth Victor R.N., Stop 14:00 09/22/2016 Lisbeth Victor R.N. Medication Administered: IV NS (SALINE), Dose: IV Fluids, Bolus: 1000 mL over 1 hour(s), Dispensed: 1000 mL bag, Site: #1 right hand. Medication Ordered: IV NS : initial bolus none -, then 1000 mL/hr for X1 (NOW). Given 12:59 09/22/2016 Lisbeth Victor R.N. Medication Administered: REGLAN [IVP] (METOCLOPRAMIDE HCL), Dose: 10 mg IVP over 2 minute(s), Site: #1 right hand. Medication Ordered: Reglan IV 10 mg (NOW). Given 13:02 09/22/2016 iLsbeth Victor R.N. Medication Administered: DECADRON [IVP], Dose: 10 mg IVP over 2 minute(s), Site: #1 right hand. Medication Ordered: Decadron IV 10 mg (NOW). Given 13:05 09/22/2016 Lisbeth Victor R.N. Medication Administered: TORADOL [IVP], Dose: 30 mg IVP over 2 minute(s), Site: #1 right hand. Medication Ordered: Toradol IV 30 mg (NOW). Given 13:07 09/22/2016 Lisbeth Victor R.N. Medication Administered: BENADRYL [IVP] (DIPHENHYDRAMINE HCL), Dose: 25 mg IVP over 2 minute(s), Site: #1 right hand. Medication Ordered: Benadryl IV 25 mg (NOW).
--- NOTE | 2016-09-22 22:20 | ED DISCHARGE INSTRUCTIONS ---
Patient: KIN PHAN General Instructions [facility] VisitID: [id number] [place] [address] 41y, F Registration Date/Time: 09/22/2016 Acute migraine headache without aura- poorly controlled. No status migrainosus, hemiplegia, ophthalmoplegia, persistent aura or cerebral infarction. Not relationship to menses. INSTRUCTIONS Do not work today. Your Current Medications: CONTINUE TAKING THE FOLLOWING MEDICATIONS: Amitriptyline HCl Oral : Tablet 50 mg, 1 tablet at bedtime. Topamax Oral : Tablet 50 mg, 1 tablet at bedtime. Prescription Medications: Reglan 10 mg tablets: take 1 orally every 6 hours as needed for nausea or vomiting. Dispense thirty (30). No refills. Substitution is permissible. Follow-up: Follow up with your doctor in about two days. Call for an appointment. Screening today revealed the patient's blood pressure to be in the normal range. ADDITIONAL INFORMATION Migraine Headache Migraine headaches are related to changes in blood flow to the brain. This causes throbbing or constant pain on one or both sides of the head. The pain may last from a few hours to several days. There is usually nausea, vomiting, sensitivity to light and sound, and blurred vision. A migraine attack may be triggered by emotional stress, hormone changes during the menstrual cycle, oral contraceptives, alcohol use, certain foods containing tyramine, eye strain, weather changes, missing meals, or too little or too much sleep. Home Care For This Headache: 1) If you were given pain medicine for this headache, do not drive yourself home . Arrange for a ride, instead. When you get home, try to sleep. You should feel much better when you wake up. 2) Migraine headaches may improve with an ice pack on the forehead or at the base of the skull. Heat to the back of your neck may relieve any neck spasm. 3) Drink only clear liquids or eat a very light diet to avoid nausea/vomiting until symptoms improve. Preventing Future Headaches: 1) Pay attention to those factors that seem to trigger your headache. Try to avoid them when you can. If you have frequent headaches, it is useful to keep a diary of what you were doing, feeling or eating in the hours before each attack. Show this to your doctor to help find the cause of your headaches. a) If you feel that stress is a factor in your headaches, look at the sources of stress in your life. Find ways to release the build-up of those stresses by using regular exercise, relaxation methods (yoga, meditation), bio-feedback or simply taking time-out for yourself. For more information about this, consult your doctor or go to a local bookstore and review books and tapes on this subject. b) Tyramine is a substance present in the following foods : chocolate, yogurt, all cheeses except cottage cheese and cream cheese. smoked or pickled fish and meat (including elder, caviar, bologna, pepperoni, salami), liver, avocados, bananas, figs, raisins, and red wine. Be aware that these foods may trigger a migraine in some persons. Try taking these foods out of your diet for 1-2 months to see if this reduces headache frequency. Treating Future Attacks: 1) At the first sign of a headache, take time out if possible. Find a quiet, dark, comfortable place to sit or lie down. Let yourself relax or sleep. 2) An ice pack on the forehead or area of greatest pain may help. If you are having muscle spasm and tightness of the neck, a heating pad and massage to this area may be helpful. 3) If you have been prescribed a medicine to stop a migraine headache, use this at the very first warning sign of the headache (aura or initial pain) for best results. Follow Up with your doctor if the headache is not better within the next 24 hours. If you have frequent headaches you should discuss a treatment plan with your primary care doctor. Ask if you can have medicine to take at home the next time you get a bad headache. Poorly controlled chronic headaches may require a referral to a neurologist (headache specialist). Get Prompt Medical Attention if any of the following occur: Your head pain gets worse, or does not improve within 24 hours Repeated vomiting (cant keep liquids down) Sinus or ear or throat pain (not already reported) Fever of 100.4 F (38 C) or higher, or as directed by your healthcare provider Stiff neck Extreme drowsiness, confusion or fainting Dizziness, vertigo (dizziness with spinning sensation) Weakness of an arm or leg or one side of the face Difficulty with speech or vision You have been given the following additional information: Headache, Migraine (Classical) Do not work today. (Electronically signed by José Miguel Colvin Dr. 09/22/2016 22:20)
== END 2016-09-22 14:00 | disposition home or self-care (01) ==
LOC: ED SRH 11:55
DX: G43.009 Migraine without aura, not intractable, without status migrainosus (principal); E11.9 Type 2 diabetes mellitus without complications; Z79.899 Other long term (current) drug therapy; Z88.1 Allergy status to other antibiotic agents; Z88.8 Allergy status to other drugs, medicaments and biological substances
CPT/HCPCS: 93070